=== PATIENT | female | born 1960 | race Caucasian/White ===

== ENCOUNTER 2024-12-30 16:28 | Emergency (ER) | payer OTHER ==
[2024-12-30] VITALS (7 sets, daily range): BP systolic 129–167; BP diastolic 75–109
[~2024-12-30] VITALS: Ht 160 cm; Wt 59.8 kg
== END 2024-12-30 17:50 | disposition home or self-care (01) | DRG 951 ==
LOC: ED 16:28
DX: Z03.89 Encounter for observation for other suspected diseases and conditions ruled out (principal)